=== PATIENT | female | born 1995 | race Two or more races ===

== ENCOUNTER → 2021-04-08 | Emergency (ER) | payer OTHER ==
[~2021-04-08] VITALS: Ht 160 cm; Wt 70.8 kg
[~2021-04-08] MED LIST: KETOROLAC TROMETH 60MG/2ML VIAL IM ONE
[2021-04-08 17:11] LABS: Urine Bacteria NONE SEEN /hpf (None Seen); Urine Blood Negative /uL (Negative); Urine Specific Gravity 1.004 (1.001-1.035); Urine WBC 1 /hpf (0 - 5)
[2021-04-08 21:15] VITALS: BP 122/79
== END | disposition home or self-care (01) ==
LOC: ER 16:32
DX: M54.9 Dorsalgia, unspecified (principal); R10.9 Unspecified abdominal pain
CPT/HCPCS: 74176; 81001; 81025; 96372; 99284; J1885

== ENCOUNTER → 2024-03-06 | Outpatient (CLI) | payer BC ==
[~2024-03-06] MED LIST changes: +AMOX500T86 PO; -KETOROLAC TROMETH 60MG/2ML VIAL IM ONE
[2024-03-06 11:27] LABS: Basophils # (auto) 0 10 ^3/uL (0-0.2); Basophils % (auto) 0.4 % (0.0-2.0); Eosinophils # (auto) 0 10 ^3/uL (0-0.8); Eosinophils % (auto) 0.3 % (0.0-7.0); Hematocrit 40.1 % (36.0-46.0); Hemoglobin 13.6 g/dL (12.2-16.2); Lymphocytes # (auto) 2.9 10 ^3/uL (0.4-5.4); Lymphocytes % (auto) 32.9 % (10.0-50.0); Mean Corpuscular Hemoglobin 29.6 pg (28.0-32.0); Mean Corpuscular Hgb Conc. 33.8 g/dL (32.0-36.0); Mean Corpuscular Volume 87.6 fL (80.0-100.0); Monocytes # (auto) 0.4 10 ^3/uL (0-1.3); Neutrophils # (auto) 5.3 10 ^3/uL (1.6-8.6); Neutrophils % (auto) 61.4 % (37.0-80.0); Red Blood Cells 4.58 10^6/uL (4.0-5.20); Red Cell Distribution Width 13.6 % (11.8-14.3); White Blood Cell 8.7 10^3/uL (4.4-10.8)
[2024-03-06 11:56] LABS: Urine Bacteria FEW /hpf (None Seen); Urine Blood TRACE /uL (Negative); Urine Clarity Clear (Clear); Urine Color Light-Yellow (Yellow); Urine Protein, UAD Negative (Negative); Urine Specific Gravity 1.009 (1.001-1.035); Urine Urobilinogen Normal (Negative); Urine WBC 1 /hpf (0 - 5); Urine pH 5.5 (5.0-9.0)
[2024-03-06 12:30] LABS: % Iron Saturation 20.6 % (15-50)
[2024-03-06 12:32] LABS: Alanine Aminotransferase 15 U/L (7-40); Alkaline Phosphatase 81 U/L (46-116); Anion Gap 7 (5-15); BUN/Creatinine Ratio 7.4 (10.0-20.0); Blood Urea Nitrogen 5 mg/dL (9-23); Calcium 9.9 mg/dL (8.5-10.1); Carbon Dioxide 29 mmol/L (20-30); Chloride 106 mmol/L (98-107); Glucose 89 mg/dL (74-106); LDL Cholesterol 107 mg/dL (< 100); Potassium 3.6 mmol/L (3.5-5.1); Sodium 142 mmol/L (136-145); Triglycerides 71 mg/dL (< 150)
[2024-03-06 12:33] LABS: Albumin 4.9 g/dL (3.2-4.8); Aspartate Aminotransferase 12 U/L (13-40); Bilirubin, Total 0.6 mg/dL (0.2-1.0); Cholesterol 207 mg/dL (< 200); HDL Cholesterol 90 mg/dL (40-59); Total Protein 7.7 g/dL (5.7-8.2)
[2024-03-06 12:43] LABS: Uric Acid 4.9 mg/dL (3.1-7.8)
[2024-03-06 12:49] LABS: Free T3 2.92 pg/mL (2.3-4.2); T3 Total 1.11 ng/mL (0.60-1.81)
[2024-03-06 12:50] LABS: Free T4 (Free Thyroxine) 1.18 ng/dL (0.89-1.76)
== END | disposition home or self-care (01) ==
LOC: LAB 10:34
PROVIDERS: ATTEND Family Medicine
DX: R11.2 Nausea with vomiting, unspecified (principal); R87.810 Cervical high risk human papillomavirus (HPV) DNA test positive
CPT/HCPCS: 36415; 80053; 80061; 81001; 82306; 82607; 83036; 83540; 83550; 84403; 84439; 84480; 84481; 84550; 84702; 85025

== ENCOUNTER 2024-10-30 20:33 | Emergency (ER) | payer BC ==
[~2024-10-30] VITALS: Ht 160 cm; Wt 72.2 kg
[2024-10-30] MEDS: ONDANSETRON HCL 4 MG/2 ML VIAL IM ONE (22:09)
[2024-10-30] MEDS: MORPHINE SULFATE INJ 2 MG/ml SYRG IM ONE (22:10)
--- NOTE | 2024-10-30 22:13 | ED.PDOC ---
History of Present Illness HPI Comments 29 y/o F, with a Hx of PCOS, presents with spouse for c/o left-sided pelvic pain, today. She comments on pain being sharp in quality and waning in severity. She denies any nausea, vomiting, diarrhea, urinary symptoms, fever, chills, or other associated symptoms or modifiers at this time. He last ultrasound was commented to have been normal and performed in September 2024. 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) Family History Family History: Reviewed,noncontributory to illness, No family hx of Cancer, No family hx of DM, No family hx of Heart pretty, No family hx of HTN, No family hx ofKidney pretty, No family hx of Liver pretty, No family hx of Lung pretty, No family hx of Stroke Social History Smoker: Non-Smoker Alcohol: Denies ETOH Use Drugs: Denies Drug Use Lives In: Home Musculoskeletal: reports: others (left pelvic pain ) All Other Systems: Reviewed and Negative (negative unless otherwise stated above or in HPI) Physical Exam General Appearance: Mild Distress, Normal HEENT: Normal ENT Inspection, Pharynx Normal, TMs Normal Neck: Full Range of Motion, Non-Tender, Normal, Normal Inspection Respiratory: Chest Non-Tender, Lungs Clear, No Accessory Muscle Use, No Respiratory Distress, Normal Breath Sounds Cardiovascular: No Edema, No JVD, No Murmur, No Gallop, Normal Peripheral Pulses, Regular Rate/Rhythm Breast Exam: Deferred Gastrointestinal: No Organomegaly, Non Tender, No Pulsatile Mass, Normal Bowel Sounds, Soft Genitalia: Deferred Pelvic: Other (left pelvic tenderness ) Rectal: Deferred Extremities: No calf tenderness, Normal capillary refill, Normal inspection, Normal range of motion, Non-tender, No pedal edema Musculoskeletal : Apperance: Normal Neurologic: Alert, 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 Was a procedure done?: No Differential Dx Considerations may include: PCOS, PID, ovarian cysts, ovarian torsion, UTI, , spoiled food X-Ray, Labs, Meds, VS Vital Signs Date Time Temp Pulse Resp B/P (MAP) Pulse Ox O2 Delivery O2 Flow Rate FiO2 10/30/24 22:24 98.0 92 18 136/92 (107) 98 98.0 10/30/24 22:10 98 18 136/92 10/30/24 21:06 97.9 102 18 148/91 (110) 96 Current Medications Medications (Trade) Dose Ordered Sig/Shweta Route Start Time Stop Time Status Last Admin Ondansetron HCl (Zofran) 4 mg ONCE ONCE IM 10/30/24 22:00 10/30/24 22:01 DC 10/30/24 22:09 Morphine Sulfate 4 mg ONCE ONCE IM 10/30/24 22:00 10/30/24 22:01 DC 10/30/24 22:10 [place] [id number] Ph: [phone] DIAGNOSTIC IMAGING Diagnostic Imaging Report : [id number] Signed PATIENT: SANDRA OLPEZ ACCT: [id number] UNIT: [id number] : 1995 LOC: ER ROOM / BED: / AGE / SEX: 29 / F ADM STATUS: REG ER SERVICE 08 ORDERING PHYSICIAN: ASIYA PAZ MD PROCEDURE(s): PELUS - PELVIC REASON: poc ORDER NUMBER(s): [id number], ACCESSION NUMBER(s): [id number] INDICATION: poc TECHNIQUE: Multiple real-time grayscale transabdominal sonographic images along with color and duplex Doppler of the uterus and ovaries were obtained. COMPARISON: None FINDINGS: The uterus measures 8.2 x 3.6 x 4.2 cm. The endometrial stripe measures 0.8 cm. Small amount of free fluid in the pelvic cul-de-sac. This is most likely physiologic. Right ovary measures 4.4 x 2.1 x 3.2 cm with normal Doppler color flow Left ovary measures 3.4 x 2.5 x 3.2 cm with normal Doppler color flow Multiple bilateral subcentimeter follicular cysts. IMPRESSION: No sonographic evidence of acute pelvic abnormalities. 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 Time of 1ST Reevaluation: 22:00 Reevaluation 1ST: Unchanged Patient Education/Counseling: Diagnosis, Treatment Family Education/Counseling: Diagnosis, Treatment Departure 1 Departure Time of Disposition: 00:44 Impression: Primary Impression: Pelvic pain Disposition: 01 HOME / SELF CARE / HOMELESS Condition: Stable Additional Instructions: Reassessed patient, vital signs stable. Denies any new symptoms. Patient is able to tolerate PO and ambulate/be mobile at their baseline without concern. Risks and benefits of all medications given or prescribed, if any, discussed. All lab work, imaging and diagnostic studies were reviewed by me. The patient was counseled extensively on my clinical impression, diagnosis, expected course of the disease, and plan, including their follow-up care. Will discharge patient. Patient instructed to follow up with Primary Care Physician within 24-48 hours. Strict return precautions given for further exacerbation of symptoms or for new symptoms. The patient was given the opportunity to ask questions and all questions were answered by myself and the nursing/tech staff. Patient is in agreement with the care plan. The patient verbally expressed understanding of the discharge instructions, including the reasons to return to the Emergency Department. Discharged With: Spouse Critical Care Note Critical Care Time?: No Stability Stability form required: No Heart Score Heart Score: Heart Score Response (Comments) Value History N/A 0 EKG N/A 0 Age N/A 0 Risk Factors N/A 0 Troponin N/A 0 Total 0 I personally scribed for ASIYA PAZ MD ([email or web address]) on 10/30/24 at 22:13. Electronically submitted by Kemar Noble ([email or web address]). I personally scribed for ASIYA PAZ MD ([email or web address]) on 10/30/24 at 23:58. Electronically submitted by Kemar Noble ([email or web address]). ASIYA PAZ MD Oct 30, 2024 22:13
[2024-10-30 22:24] VITALS: TEMP 98
--- NOTE | 2024-10-30 23:23 | DVH ---
INDICATION: poc TECHNIQUE: Multiple real-time grayscale transabdominal sonographic images along with color and duplex Doppler of the uterus and ovaries were obtained. COMPARISON: None FINDINGS: The uterus measures 8.2 x 3.6 x 4.2 cm. The endometrial stripe measures 0.8 cm. Small amoun t of free fluid in the pelvic cul-de-sac. This is most likely physiologic. Right ovary measures 4.4 x 2.1 x 3.2 cm with normal Doppler color flow Left ovary measures 3.4 x 2.5 x 3.2 cm with normal Doppler color flow Multiple bilateral subcentimeter follicular cysts. IMPRESSION: No sonographic evidence of acute pelvic abnormalities.
[2024-10-31 02:50] VITALS: PULSE 75; RESP 75; O2SAT 98
[2024-10-31 02:53] VITALS: BP 134/87; PULSE 75; RESP 18
== END 2024-10-31 02:54 | disposition home or self-care (01) ==
LOC: ER 20:33
DX: R10.2 Pelvic and perineal pain (principal)
CPT/HCPCS: 76856; 96372; 99285; J2270; J2405

== ENCOUNTER 2025-04-30 17:50 | Emergency (ER) | payer BC, OTHER ==
[~2025-04-30] VITALS: Ht 157.5 cm; Wt 72.3 kg
[2025-04-30 18:00] VITALS: BP 143/88; PULSE 74; RESP 16; TEMP 98.9; O2SAT 97
--- NOTE | 2025-04-30 18:08 | ED.PDOC ---
Back pain HPI HPI Comments This is a 30 year old female presenting to the ED with chief complaint of back pain. Patient reports that she was at work picking up boxes when after bending down and coming back up, she felt a sharp pain to her right lower back which later started to radiate into her right leg. Patient relays that her pain is a 7/10. Patient denies any numbness, weakness, tingling, fall, injury, or headache. Time Seen by MD: 18:05 Primary Care Provider: unknown Reviewed Notes: Nurses Notes, Medications, Allergies Allergies: Coded Allergies: NO KNOWN ALLERGIES (Unverified , 02/05/23) Home Meds Active Scripts Amoxicillin & Pot Clavulanate (Augmentin) 500 Mg Tab, 1 TAB PO BID for 10 Days, #20 TAB Prov:ESERYNE Racheal LEON 02/05/23 Information Source: Patient Mode of Arrival: Ambulatory Timing: Hours Duration: Since onset Location of Back pain: (R) Lower back Radiates to: Posterior: (R) Thigh Severity: Moderate Quality: Aching Onset: Bending Circumstance: Work Related History of: None Past Medical History PAST MEDICAL HISTORY: Denies Surgical History (Other): LASIK eye surgery 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) Family History Family History: Reviewed,noncontributory to illness, Family hx of DM, Family hx of HTN Social History Smoker: Non-Smoker Alcohol: Occasionally Drugs: Marijuana Lives In: Home Constitutional: denies: chills, diaphoresis, fatigue, fever, malaise, sweats, weakness, others EENTM: denies: blurred vision, double vision, ear bleeding, ear discharge, ear drainage, ear pain, ear ringing, eye pain, eye redness, hearing loss, mouth pain, mouth swelling, nasal discharge, nose bleeding, nose congestion, nose pain, photophobia, tearing, throat pain, throat swelling, voice changes, others Respiratory: denies: cough, hemoptysis, orthopnea, SOB at rest, shortness of breath, SOB with excertion, stridor, wheezing, others Cardiovascular: denies: chest pain, dizzy spells, diaphoresis, Dyspnea on exertion, edema, irregular heart beat, left arm pain, lightheadedness, palpitations, PND, syncope, others Gastrointestinal: denies: abdomen distended, abdominal pain, blood streaked bowels, constipated, diarrhea, dysphagia, difficulty swallowing, hematemesis, melena, nausea, poor appetite, poor fluid intake, rectal bleeding, rectal pain, vomiting, others Genitourinary: denies: abnormal vagina bleeding, burning, dyspareunia, dysuria, flank pain, frequency, hematuria, incontinence, pain, , vagina discharge, urgency, others Neurological: denies: dizziness, fainting, headache, left sided numbness, left sided weakness, numbness, paresthesia, pre-existing deficit, right sided numbness, right sided weakness, seizure, speech problems, tingling, tremors, w eakness, others Musculoskeletal: reports: back pain; denies: gout, joint pain, joint swelling, muscle pain, muscle stiffness, neck pain, others Integumetry: denies: bruises, change in color, change in hair/nails, dryness, laceration, lesions, lumps, rash, wounds, others Allergic/Immunocompromised: denies: Difficulty Healing, Frequent Infections, Hives, Itching, others Hematologic/Lymphatic: denies: anemia, blood clots, easy bleeding, easy bruising, swollen glands, others Endocrine: denies: excessive hunger, excessive sweating, excessive thirst, excessive urination, flushing, intolerance to cold, intolerance to heat, unexplained weight gain, unexplained weight loss, others Psychiatric: denies: anxiety, bipolar disorder, depression, hopeless, panic disorder, schizophrenia, sleepless, suicidal, others All Other Systems: Reviewed and Negative Physical Exam General Appearance: No Apparent Distress HEENT: Normal ENT Inspection, Pharynx Normal, TMs Normal Neck: Full Range of Motion, Non-Tender, Normal, Normal Inspection Respiratory: Chest Non-Tender, Lungs Clear, No Accessory Muscle Use, No Respiratory Distress, Normal Breath Sounds Cardiovascular: No Edema, No JVD, No Murmur, No Gallop, Normal Peripheral Pulses, Regular Rate/Rhythm Breast Exam: Deferred Gastrointestinal: No Organomegaly, Non Tender, No Pulsatile Mass, Normal Bowel Sounds, Soft Genitalia: Deferred Pelvic: Deferred Rectal: Deferred Extremities: No calf tenderness, Normal capillary refill, Normal inspection, Normal range of motion, Non-tender, No pedal edema Musculoskeletal : Location: Bilateral Extremity Location: Back Apperance: Limited ROM Neurologic: Alert, mobile 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 Was a procedure done?: No Back Pain Differential Dx Differential Diagnosis: Fracture, Strain, Urolithiasis X-Ray, Labs, Meds, VS Vital Signs Date Time Temp Pulse Resp B/P (MAP) Pulse Ox O2 Delivery O2 Flow Rate FiO2 04/30/25 18:00 98.9 74 16 143/88 (106) 97 98.9 Lab Test 04/30/25 18:05 Range/Units Urine Color Light-yellow Yellow Urine Clarity Clear Clear Urine pH 6.5 5.0-9.0 Urine Specific [place] 1.017 1.001-1.035 Urine Protein Negative Negative Urine Ketones Negative Negative Urine Blood Trace H Negative /uL Urine Nitrite Negative Negative Urine Bilirubin Negative Negative Urine Urobilinogen Normal Negative mg/dL Urine Leukocyte Esterase Negative Negative /uL Urine RBC 2 0 - 4 /hpf Urine Microscopic WBC 1 0-5 /HPF Urine Squamous Epithelial Cells Few <5 /hpf Urine Bacteria None seen None Seen /hpf Urine Glucose Normal Normal mg/dL Urine Test Negative Negative The patient's urine test is negative for infection We are waiting for the test to order the x-ray for the lower back The patient has eloped from the department's Time of 1ST Reevaluation: 20:28 Reevaluation 1ST: Unchanged Patient Education/Counseling: Diagnosis, Treatment Family Education/Counseling: No Family Present Additional Information Reviewed patient's previous visit(s): 10/30/24 for pelvic pain The following tests were ordered, and results were reviewed by me: Preg urine, L-Spine XR, UA Additional information was gathered from interviewing the following independent historian: None I reviewed and agreed with the following test results read by other provider: L- Spine XR I discussed treatments and results with medical personnel and: Patient Comprehensive systems review obtained and negative except for what is stated in the HPI. SEPSIS Sepsis Screen Physician Orders Lumbar Spine 3 View (04/30/25 18:05) Vital Signs Date Time Temp Pulse Resp B/P (MAP) Pulse Ox O2 Delivery O2 Flow Rate FiO2 04/30/25 18:00 98.9 74 16 143/88 (106) 97 98.9 Departure 1 Departure Time of Disposition: 20:27 Impression: Primary Impression: Lumbar sprain Qualified Codes: S33.5XXA - Sprain of ligaments of lumbar spine, initial encounter Disposition: LEFT AWOL/ELOPED Condition: Fair Critical Care Note Critical Care Time?: No Stability Stability form required: No Heart Score Heart Score: Heart Score Response (Comments) Value History N/A 0 EKG N/A 0 Age N/A 0 Risk Factors N/A 0 Troponin N/A 0 Total 0 I personally scribed for BRYAN DIALLO MD ([email or web address]) on 04/30/25 at 18:08. Electronically submitted by Fahad Santa ([email or web address]). I personally scribed for BRYAN DIALLO MD ([email or web address]) on 04/30/25 at 18:09. Electronically submitted by Fahad Santa ([email or web address]). BRYAN DIALLO MD Apr 30, 2025 18:08
[2025-04-30] MEDS ORDERED: KETOROLAC TROMETH 60MG/2ML VIAL IM ONE (18:15)
[2025-04-30 19:34] LABS: Urine Protein, UAD Negative (Negative)
== END 2025-04-30 20:29 | disposition left against medical advice (07) ==
LOC: ER 17:55
DX: S33.5XXA Sprain of ligaments of lumbar spine, initial encounter (principal); E28.2 Polycystic ovarian syndrome; F10.90 Alcohol use, unspecified, uncomplicated; F12.90 Cannabis use, unspecified, uncomplicated; Z98.890 Other specified postprocedural states; Z79.899 Other long term (current) drug therapy; X50.1XXA Overexertion from prolonged static or awkward postures, initial encounter; Y93.89 Activity, other specified; Y92.89 Other specified places as the place of occurrence of the external cause; Y99.0 Civilian activity done for income or pay; Y90.9 Presence of alcohol in blood, level not specified
CPT/HCPCS: 81001; 81025

== ENCOUNTER 2025-10-22 16:50 | Emergency (ER) | payer BC, OTHER ==
[~2025-10-22] VITALS: Ht 157.5 cm; Wt 67.4 kg
[2025-10-22 17:49] LABS: Hematocrit 40.0 % (36.0-46.0); Hemoglobin 13.6 g/dL (12.2-16.2); Mean Corpuscular Hemoglobin 29.1 pg (28.0-32.0); Mean Corpuscular Volume 85.8 fL (80.0-100.0); Nucleated Red Blood Cells % 0.1 %
[2025-10-22 17:54] LABS: Potassium 4.0 mmol/L (3.5-5.1); Sodium 139 mmol/L (136-145)
[2025-10-22 17:55] LABS: Anion Gap 10 (5-15); Calcium 9.4 mg/dL (8.7-10.4); Carbon Dioxide 22 mmol/L (20-31)
--- NOTE | 2025-10-22 17:55 | ED.PDOC ---
History of Present Illness HPI Comments This is a 30-year old female who presented to the ED with the chief complaint of abdominal and pelvic pain. She mentions she was UPT positive at home 4 days back and at urgent care this morning where she got a transvaginal ultrasound done which showed no intrauterine .Post the ultrasound, she went home and a few hours later, started having intense right sided pelvic pain, rated as 8/10 in intensity, cramping in character. She has PCOS and has a history of miscarriage in 2018. She denies any fever, chills, vomiting or diarrhea. We spoke to OBGYN. We communicated with the patient and recommended to repeat beta quant and ultrasound within a week. 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 Family History Family History: Reviewed,noncontributory to illness, Family hx of DM, Family hx of HTN Social History Smoker: Non-Smoker Alcohol: Occasionally Drugs: Marijuana Lives In: Home Constitutional: denies: chills, diaphoresis, fatigue, fever, malaise, sweats, w eakness, others EENTM: denies: blurred vision, double vision, ear bleeding, ear discharge, ear drainage, ear pain, ear ringing, eye pain, eye redness, hearing loss, mouth pain, mouth swelling, nasal discharge, nose bleeding, nose congestion, nose pain, photophobia, tearing, throat pain, throat swelling, voice changes, others Respiratory: denies: cough, hemoptysis, orthopnea, SOB at rest, shortness of breath, SOB with excertion, stridor, wheezing, others Cardiovascular: denies: chest pain, dizzy spells, diaphoresis, Dyspnea on exertion, edema, irregular heart beat, left arm pain, lightheadedness, palpitations, PND, syncope, others Gastrointestinal: reports: abdominal pain; denies: abdomen distended, blood streaked bowels, constipated, diarrhea, dysphagia, difficulty swallowing, hematemesis, melena, nausea, poor appetite, poor fluid intake, rectal bleeding, rectal pain, vomiting, others Genitourinary: denies: abnormal vagina bleeding, burning, dyspareunia, dysuria, flank pain, frequency, hematuria, incontinence, pain, , vagina discharge, urgency, others Neurological: denies: dizziness, fainting, headache, left sided numbness, left sided weakness, numbness, paresthesia, pre-existing deficit, right sided numbness, right sided weakness, seizure, speech problems, tingling, tremors, weakness, others Musculoskeletal: denies: back pain, gout, joint pain, joint swelling, muscle pain, muscle stiffness, neck pain, others Integumetry: denies: bruises, change in color, change in hair/nails, dryness, laceration, lesions, lumps, rash, wounds, others Allergic/Immunocompromised: denies: Difficulty Healing, Frequent Infections, Hives, Itching, others Hematologic/Lymphatic: denies: anemia, blood clots, easy bleeding, easy bruising, swollen glands, others Endocrine: denies: excessive hunger, excessive sweating, excessive thirst, excessive urination, flushing, intolerance to cold, intolerance to heat, unexplained weight gain, unexplained weight loss, others Psychiatric: denies: anxiety, bipolar disorder, depression, hopeless, panic disorder, schizophrenia, sleepless, suicidal, others Physical Exam General Appearance: Normal HEENT: Normal ENT Inspection Neck: Full Range of Motion, Non-Tender, Normal Inspection Respiratory: Lungs Clear, No Accessory Muscle Use, No Respiratory Distress, Normal Breath Sounds Cardiovascular: No Edema, No Murmur, Normal Peripheral Pulses, Tachycardia Breast Exam: Normal Gastrointestinal: No Pulsatile Mass, Normal Bowel Sounds, Tenderness Genitalia: Deferred Pelvic: Deferred Rectal: Deferred Extremities: Normal capillary refill, Normal inspection, Normal range of motion, Non-tender, No pedal edema Neurologic: Alert, No Motor Deficits, Normal Affect, Normal Mood, No Sensory Deficits Cerebellar Function: Normal Reflexes: Normal Skin: Normal Color Lymphatic: No Adenopathy Was a procedure done? Was a procedure done?: No Differential Dx Considerations may include: , ectopic , PID X-Ray, Labs, Meds, VS Vital Signs Date Time Temp Pulse Resp B/P (MAP) Pulse Ox O2 Delivery O2 Flow Rate FiO2 10/22/25 21:52 98.9 74 18 114/73 (87) 97 98.9 10/22/25 18:34 97.9 10/22/25 17:09 97.1 111 26 144/88 99 97.1 Lab Test 10/22/25 21:00 10/22/25 17:34 Range/Units Urine Color Colorless Yellow Urine Clarity Clear Clear Urine pH 6.5 5.0-9.0 Urine Specific [place] 1.005 1.001-1.035 Urine Protein Negative Negative Urine Ketones Trace Negative Urine Blood Negative Negative /uL Urine Nitrite Negative Negative Urine Bilirubin Negative Negative Urine Urobilinogen Normal Negative mg/dL Urine Leukocyte Esterase Negative Negative /uL Urine RBC <1 0 - 4 /hpf Urine Microscopic WBC < 1 0-5 /HPF Urine Squamous Epithelial Cells Few <5 /hpf Urine Bacteria None seen None Seen /hpf Urine Glucose Normal Normal mg/dL Urine Test Positive Negative White Blood Count 12.1 H 4.4-10.8 10^3/uL Red Blood Count 4.66 4.0-5.20 10^6/uL Hemoglobin 13.6 12.2-16.2 g/dL Hematocrit 40.0 36.0-46.0 % Mean Corpuscular Volume 85.8 80.0-100.0 fL Mean Corpuscular Hemoglobin 29.1 28.0-32.0 pg Mean Corpuscular Hemoglobin Concent 33.9 32.0-36.0 g/dL Red Cell Distribution Width 13.6 11.8-14.3 % Platelet Count 384 140-450 10^3/uL Mean Platelet Volume 7.3 6.9-10.8 fL Neutrophils (%) (Auto) 61.2 37.0-80.0 % Lymphocytes (%) (Auto) 31.8 10.0-50.0 % Monocytes (%) (Auto) 5.8 0.0-12.0 % Eosinophils (%) (Auto) 0.5 0.0-7.0 % Basophils (%) (Auto) 0.7 0.0-2.0 % Neutrophils # (Auto) 7.4 1.6-8.6 10 ^3/uL Lymphocytes # (Auto) 3.8 0.4-5.4 10 ^3/uL Monocytes # (Auto) 0.7 0-1.3 10 ^3/uL Eosinophils # (Auto) 0.1 0-0.8 10 ^3/uL Basophils # (Auto) 0.1 0-0.2 10 ^3/uL Nucleated Red Blood Cells 0.1 % Sodium Level 139 136-145 mmol/L Potassium Level 4.0 3.5-5.1 mmol/L Chloride Level 107 98-107 mmol/L Carbon Dioxide Level 22 20-31 mmol/L Anion Gap 10 5-15 Blood Urea Nitrogen 6 L 9-23 mg/dL Creatinine 0.61 0.550-1.02 mg/dL Glomerular Filtration Rate Calc 122 >90 mL/min BUN/Creatinine Ratio 9.8 L 10.0-20.0 Serum Glucose 90 74-106 mg/dL Calcium Level 9.4 8.7-10.4 mg/dL Beta HCG, Quantitative 194.3 H 1.5-4.2 mIU/mL Current Medications Medications (Trade) Dose Ordered Sig/Shweta Route Start Time Stop Time Status Last Admin Acetaminophen (Tylenol Tablet) 650 mg ONCE ONCE PO 10/22/25 18:30 10/22/25 18:31 DC 10/22/25 18:34 Time of 1ST Reevaluation: 18:00 Reevaluation 1ST: Unchanged Patient Education/Counseling: Diagnosis, Treatment, Prognosis Family Education/Counseling: Diagnosis, Treatment, Prognosis SEPSIS Sepsis Screen Date sepsis recognized/suspect: Oct 22, 2025 Time Sepsis recognized/suspect: 1708 Recent Procedure: No On Antibiotic Therapy: No Respiratory Rate >20: Yes (26) Heart Rate >90: Yes (111) Temp<36 C (96.8 F) or >38.3 C: No SBP <90 or MAP <65 mmHG: No New Acute Mental Status Change: No Is the patient on CPAP, BIPAP,: No Physician Orders Ob Ultrasound Comp Less 14wks (10/22/25 18:52) * Navigating Officer Consultation (10/22/25 22:59) Vital Signs Date Time Temp Pulse Resp B/P (MAP) Pulse Ox O2 Delivery O2 Flow Rate FiO2 10/22/25 21:52 98.9 74 18 114/73 (87) 97 98.9 10/22/25 18:34 97.9 10/22/25 17:09 97.1 111 26 144/88 99 97.1 Laboratory Tests Test 10/22/25 17:34 White Blood Count 12.1 10^3/uL (4.4-10.8) H Medications Medications Dose Ordered Sig/Shweta Route Start Time Stop Time Status Last Admin Dose Admin Acetaminophen 650 mg ONCE ONCE PO 10/22/25 18:30 10/22/25 18:31 DC 10/22/25 18:34 Departure 1 Departure Time of Disposition: 18:00 Impression: Primary Impression: in first trimester Additional Impressions: PID (acute pelvic inflammatory disease) Ovarian cyst Disposition: ADMITTED INPATIENT Admit to: Med Surg Condition: Guarded Comments 30-year-old female with intractable abdominal pain with early . Her ultrasound suggests that the may be a complex cystic mass in the adnexa. Her hCG is quite low in the 100s. Patient is still having pain on re-evaluation. We will consult with OBGYN for abdominal pain, early and suspected ectopic . I was able to the discussed the case with Dr. Hare from OBGYN. She reviewed the ultrasound and is confident that this is a an ovarian cyst. She recommends that the patient go home for now and follow up in 2 days for repeat ultrasound and repeat hCG level. Patient is agreeable with the plan. Critical Care Note Critical Care Time?: No Stability Stability form required: No Heart Score Heart Score: Heart Score Response (Comments) Value History N/A 0 EKG N/A 0 Age N/A 0 Risk Factors N/A 0 Troponin N/A 0 Total 0 BEAU SALAS RESIDENT Oct 22, 2025 17:55 AMINAH PEGUERO MD Oct 23, 2025 00:01
[2025-10-22 18:00] LABS: BUN/Creatinine Ratio 9.8 (10.0-20.0); Glucose 90 mg/dL (74-106)
[2025-10-22 18:02] LABS: Blood Urea Nitrogen 6 mg/dL (9-23); Chloride 107 mmol/L (98-107)
[2025-10-22] MEDS: ACETAMINOPHEN 325 MG TAB PO ONE (18:34)
--- NOTE | 2025-10-22 21:28 | DVH ---
OB ULTRASOUND <14 WEEKS: HISTORY: pelvic pain TECHNIQUE: Multiple real-time grayscale sonographic images of the pelvis with duplex Doppler color flow, spectral and M-mode analysis. COMPARISON: US LESS THAN 14 WKS TRANSAB/VAG on DOS: 10/22/25, US PELVIC on DOS: 10/30/24, US PELVIC on DOS: 10/12/24 FINDINGS: The uterus measures 8.1 x 4.3 x 5.8 cm The cervix is closed. Right ovary measures 2.4 x 2.3 x 3.0 cm with normal Doppler color flow. Left ovary measures 3.7 x 3.5 x 3.3 cm with normal Doppler color flow. Complex mixed solid and cystic structure is seen either in or adjacent to the left ovary measuring 2.4 x 1.8 x 1.9 cm. Peripheral vascularity noted. No discrete gestational sac or pole. No intrauterine gestation is seen. Trace pelvic fluid which could be physiologic. IMPRESSION: No intrauterine gestation. Left ovarian versus adnexal mixed solid and cystic mass measuring 2.4 cm. It is difficult to determine if this arises from the ovary and represents a complex cyst versus adjacent to the ovary and represents an adnexal ectopic . Close follow-up recommended.
[2025-10-22 22:01] LABS: Urine Protein, UAD Negative (Negative)
--- NOTE | 2025-10-23 00:10 | PRN ---
Misceleneous Note Note Note Patient was seen and evaluated ER treatment area. Discussed case with Dr Moreno. requested OBGYN be consulted for ectopic and orders placed by OBGYN. 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 COLT KELLEY NP Oct 23, 2025 00:10
[2025-10-23] MEDS: ACETAMINOPHEN 325 MG TAB PO ONE ×2 (00:19→00:21)
[2025-10-23 00:28] VITALS: BP 114/73; PULSE 80; RESP 18; TEMP 98.8; O2SAT 97
== END 2025-10-23 00:33 | disposition home or self-care (01) ==
LOC: ER 16:50
DX: O03.5 Genital tract and pelvic infection following complete or unspecified spontaneous abortion (principal); Z87.59 Personal history of other complications of pregnancy, childbirth and the puerperium
CPT/HCPCS: 36415; 76801; 80048; 81001; 81025; 84702; 85025